=== PATIENT | female | born 2000 | race Caucasian/White ===

== ENCOUNTER → 2021-02-02 | Outpatient (CLI) | payer BC, OTHER | LOC: LAB 15:59 | DX: D89.89 Other specified disorders involving the immune mechanism, not elsewhere classified (principal); M25.50 Pain in unspecified joint; D59.12 Cold autoimmune hemolytic anemia; Z79.899 Other long term (current) drug therapy ==

== ENCOUNTER → 2021-02-03 | Outpatient (CLI) | payer BC, OTHER ==
[2021-02-03 15:10] LABS: HEMOGLOBIN 12.5 gm/dl (12.3-15.3); RED BLOOD COUNT 4.11 M/UL (4.00-5.10); WHITE BLOOD COUNT 5.9 K/UL (4.5-11.0)
[2021-02-03 15:35] LABS: BUN/CREATININE RATIO 15 (0-10)
== END ==
LOC: LAB 13:07
PROVIDERS: Internal Medicine
DX: D89.89 Other specified disorders involving the immune mechanism, not elsewhere classified (principal); M25.50 Pain in unspecified joint; D59.12 Cold autoimmune hemolytic anemia; Z79.899 Other long term (current) drug therapy
CPT/HCPCS: 36415; 80053; 85025